=== PATIENT | male | born 1935 | race Caucasian/White ===

== ENCOUNTER 2016-05-21 13:18 | Emergency (ER) | payer OTHER ==
--- NOTE | 2016-05-21 14:21 | ED EKG INTERP ---
EKG Interpretation - EKG Time of EKG reading by physician:: 13:59 EKG Read and Signed by:: Aleida Aburto EKG Interpretation (*Must complete 3 of following elements*): Abnormal Rate: 72 Rhythm: NSR [place]: left QRS: normal MO Interval: normal ST Wave: normal Attestation - Scribe Verification/Attestation Scribe:: Reji Obrien Acting as Scribe for:: Aleida Aburto Scribe documention review:: This chart was documented by a scribe and accurately reflects the service the provider performed and the decisions made by the provider. Physician Attestation - Physician Attestation I, the provider, attest to the following statement:: Aleida Aburto Physician documentation Attestation:: This documentation recorded by the scribe accurately reflects the service I personally performed and the decisions made by me.
--- NOTE | 2016-05-21 16:02 | PROVIDER DOCUMENTATION ---
HPI-General Adult - General Chief Complaint: Weakness Stated Complaint: WEAKNESS Time Seen by Provider: 05/21/16 15:45 Source: family Allergies/Adverse Reactions: Patient Allergies Allergy/AdvReac Type Severity Reaction Status Date / Time No Known Allergies Allergy Verified 05/21/16 14:47 Home Medications: Home Medication List Medication Instructions Recorded Confirmed Last Taken Type Acetaminophen [Tylenol] 325 mg PO DAILY 05/21/16 05/21/16 05/21/16 08:00 History Murray 650 mg PO DAILY 05/21/16 05/21/16 05/21/16 08:00 History Ascorbic Acid [Vitamin C] 1,000 mg PO DAILY 05/21/16 05/21/16 05/21/16 08:00 History Cetirizine HCl [Zyrtec] 10 mg PO DAILY 05/21/16 05/21/16 05/21/16 08:00 History Finasteride 5 mg PO DAILY 05/21/16 05/21/16 05/21/16 08:00 History Garlic 100 mg PO DAILY 05/21/16 05/21/16 05/21/16 08:00 History Glimepiride 2 mg PO BID 05/21/16 05/21/16 05/21/16 08:00 History Hydralazine HCl 25 mg PO BID 05/21/16 05/21/16 05/21/16 08:00 History Mesalamine D.r. [Asacol Hd] 800 mg PO BID 05/21/16 05/21/16 05/21/16 08:00 History Multivitamin [Multivitamins] 1 cap PO DAILY 05/21/16 05/21/16 05/21/16 08:00 History Rivaroxaban [Xarelto] 20 mg PO DAILY 05/21/16 05/21/16 05/21/16 08:00 History Timolol Maleate 1 dose OP DAILY 05/21/16 05/21/16 05/21/16 08:00 History Vitamin B Complex 1 cap PO DAILY 05/21/16 05/21/16 05/21/16 08:00 History - History of Present Illness -Gen Adult Nature of Presenting Problems: Patient is a 80 yo M that presents to the ER via EMS for generalized weakness and frail. patient's wants him admitted for rehab. He has decreased ability to walk. She reports he was recently admitted and released from [facility] a few weeks ago. He has pcp in [place] and usually goes to [facility]. denies chest pain, palpitations, n/v/d, or fever/ chills. Location of Pain/Injury: reports: generalized Pain Radiation: reports: no radiation Quality of Pain: reports: none Severity: reports: moderate Onset/Duration: reports: unsure Timing: reports: still present, constant Context/Activities at Onset: reports: none Modifying Factors: improves with: nothing Associated Symptoms: reports: fatigue, malaise, weakness, trouble walking. denies: back/neck pain, chest pain, constipation, cough, diarrhea, dizziness, fever/chills, genitourinary problems, nausea, shortness of breath, swelling/ mass in abdomen Similar Symptoms Previously?: Yes Recently seen or treated by another doctor?: No Review of Systems - Adult - REVIEW OF SYSTEMS - ADULT ROS:: ROS per family Constitutional: reports: fatique. denies: chills, fever Eyes: reports: no symptoms reported Ears, Nose, Mouth & Throat: denies: ear pain, sinus problem, throat pain, throat swelling Cardiovascular: denies: chest pain, palpitations, syncope Respiratory: denies: cough, dyspnea on exertion, shortness of breath, wheezing Gastrointestinal: denies: abdominal pain, diarrhea, nausea, vomiting Genitourinary: reports: no symptoms reported Musculoskeletal: reports: muscle weakness. denies: muscle aches Integumentary: reports: no symptoms reported Neurological: denies: dizziness/vertigo, headache/migraines, numbness, paresthesia, seizure, syncope Psychiatric: reports: no symptoms reported Endocrine: reports: no symptoms reported Hematologic/Lymphatic: reports: no symptoms reported Allergic/Immunologic: reports: no symptoms reported All Other Systems: Reviewed and Negative Past History - Adult - PAST MEDICAL HISTORY-ADULT Review of Records: reports: Old Records Reviewed, Nursing Assessment Review, Medications Reviewed Cardiovascular: reports: HTN Endocrine/Immune: reports: Diabetes - PRIOR SURGERIES/PROCEDURES Surgical/Procedure History: reports: tonsillectomy - IMMUNIZATION STATUS Childhood Immunizations: See Nurse Assessment Flu Vaccine: See Nurse Assessment - FAMILY HISTORY Family History: reviewed, not pertinent - SOCIAL HISTORY Smoking: non-smoker Living Situation: family Physical Exam-General - PHYSICAL EXAM-ADULT Initial Vital Signs Reviewed: Yes - CONSTITUTIONAL General Appearance: alert, no apparent distress, other (frail appearing) - EYES Eyes: PERRL/EOMI, pink conjunctivae - HEAD, EARS, NOSE, MOUTH & THROAT HENMT: normocephalic/atraumatic, moist mucous membranes, normal ENT inspection - NECK Neck: full range of motion, normal inspection - RESPIRATORY Respiratory: lungs clear, normal breath sounds, no respiratory distress, no accessory muscle use - CARDIOVASCULAR Cardiovascular: regular rate, rhythm, no edema, no murmur - GASTROINTESTINAL (ABDOMEN) Abdominal Exam: normal bowel sounds, non tender, soft - MUSCULOSKELETAL Extremity: no calf tenderness, normal capillary refill, pelvis stable - SKIN Integumentary: normal color, warm/dry - NEUROLOGIC Neurologic: motor weakness (generalized bilateral lower extremity) - PSYCHIATRIC Psych/Mental Status: normal mood/affect, oriented x 3 Progress - PLAN OF CARE/RESULTS Progress/Plan/Lab Results: plan of care-labs, social work/case manger involvement for help with placement Zen LARKINsr risk management consultant contacted [facility], pt will be d/c home tonight. They will contact [facility], patient will be given [employer]'s number for tonight in case needs someone to see him tonight. [facility] will await insurance approval tomorrow but they have a male bed. Vital Signs Temp Pulse Resp BP Pulse Ox 05/21/16 13:26 97.7 F 78 15 140/75 98 No Known Allergies Allergy (Verified 05/21/16 14:47) Acetaminophen [Tylenol] 325 mg PO DAILY 05/21/16 Murray 650 mg PO DAILY 05/21/16 Ascorbic Acid [Vitamin C] 1,000 mg PO DAILY 05/21/16 Cetirizine HCl [Zyrtec] 10 mg PO DAILY 05/21/16 Finasteride 5 mg PO DAILY 05/21/16 Garlic 100 mg PO DAILY 05/21/16 Glimepiride 2 mg PO BID 05/21/16 Hydralazine HCl 25 mg PO BID 05/21/16 Mesalamine D.r. [Asacol Hd] 800 mg PO BID 05/21/16 Multivitamin [Multivitamins] 1 cap PO DAILY 05/21/16 Rivaroxaban [Xarelto] 20 mg PO DAILY 05/21/16 Timolol Maleate 1 dose OP DAILY 05/21/16 Vitamin B Complex 1 cap PO DAILY 05/21/16 Dietary Diet Diabetic Diet Start FriMay 21 142 Laboratory 05/21/16 05/21/16 05/21/16 16:48 16:37 16:37 WBC RBC Hgb Hct MCV MCH MCHC RDW Std Deviation Plt Count MPV Neut % (Auto) Lymph % (Auto) Hayes % (Auto) Eos % (Auto) Baso % (Auto) Neut # (Auto) Lymph # (Auto) Hayes # (Auto) Eos # (Auto) Baso # (Auto) Sodium 135 L Potassium 4.5 Chloride 97 L Carbon Dioxide 25 Anion Gap 13 BUN 21 Creatinine 0.7 Estimated GFR/1.73 m2 > 60 BUN/Creatinine Ratio 30 Glucose 176 H Calculated Osmolality 277 Calcium 8.7 L Total Bilirubin 0.19 L AST 17 ALT 26 Alkaline Phosphatase 87 Total Protein 6.7 Albumin 3.2 L Globulin 3.5 Albumin/Globulin Ratio 0.9 TSH 1.86 Urine Source CATH Urine Color YELLOW Urine Turbidity CLEAR Urine pH 6.0 Ur Specific [place] 1.018 Urine Protein 30 A Ur Glucose (Stick) NEGATIVE Ur Ketones (Stick) NEGATIVE Urine Blood TRACE A Urine Nitrite NEGATIVE Urine Bilirubin NEGATIVE Urobilinogen Dipstick NORMAL Urine Leukocytes TRACE A Urine WBC (Auto) 10-20 A Urine RBC (Auto) 10-20 A U Epithel Cells (Auto) <10 Urine Bacteria (Auto) NEGATIVE Urine Crystals NONE SEEN Small Round Cells NONE SEEN Urine Casts NONE SEEN Urine Yeast-like Cells PRESENT 05/21/16 16:37 WBC 14.37 H RBC 4.50 L Hgb 12.0 L Hct 37.9 L MCV 84.2 MCH 26.7 L MCHC 31.7 L RDW Std Deviation 14.2 Plt Count 578 H MPV 8.8 Neut % (Auto) 69.8 Lymph % (Auto) 16.9 L Hayes % (Auto) 12.4 H Eos % (Auto) 0.7 Baso % (Auto) 0.2 Neut # (Auto) 10.03 H Lymph # (Auto) 2.43 [place] # (Auto) 1.78 H Eos # (Auto) 0.10 Baso # (Auto) 0.03 Sodium Potassium Chloride Carbon Dioxide Anion Gap BUN Creatinine Estimated GFR/1.73 m2 BUN/Creatinine Ratio Glucose Calculated Osmolality Calcium Total Bilirubin AST ALT Alkaline Phosphatase Total Protein Albumin Globulin Albumin/Globulin Ratio TSH Urine Source Urine Color Urine Turbidity Urine pH Ur Specific [place] Urine Protein Ur Glucose (Stick) Ur Ketones (Stick) Urine Blood Urine Nitrite Urine Bilirubin Urobilinogen Dipstick Urine Leukocytes Urine WBC (Auto) Urine RBC (Auto) U Epithel Cells (Auto) Urine Bacteria (Auto) Urine Crystals Small Round Cells Urine Casts Urine Yeast-like Cells Orders Category Date Time Status Diabetic Diet Diet 05/21/16 14:26 Active CBC WITH ELECTRONIC DIFF [HEME] Stat Lab 05/21/16 16:37 Completed COMPREHENSIVE METABOLIC PANEL [CHEM] Stat Lab 05/21/16 16:37 Completed TSH Stat Lab 05/21/16 16:37 Completed UA NIMS W/REFLEX CULT [URINALYSIS] Stat Lab 05/21/16 16:48 Completed URINE CULTURE [RM] Routine Lab 05/21/16 17:13 Received URINE MANUAL MICROSCOPIC [URINALYSIS] Stat Lab 05/21/16 16:48 Completed pt will be d/c home, they will f/u with [facility] tomorrow for rehab placement , pt was clinically stable, was comfortable with plan of care Departure - Departure Time of Disposition Order: 17:46 DIAGNOSIS: Generalized weakness Fatigue Qualifiers: Fatigue type: other Qualified Code(s): R53.83 - Other fatigue Disposition: HOME 01 Certified Medical Emergency: Emergent Condition: Stable Additional Instructions: f/u with [facility] tomorrow as instructed by Soledad LARKIN ED Follow Up Instructions: You have been treated by a care provider in the Emergency Department. These instructions are being provided to you so you can have an understanding of how to care for yourself upon discharge. Upon discharge from the Emergency Department, you are responsible for making arrangements for follow-up care by a physician of your choice. Take all prescribed medications as directed. Return to the Emergency Department immediately for any new or worsening symptoms. You may call the Physician Referral phone number at [phone] to obtain a list of Physicians who are taking new patients. Attestation - Scribe Verification/Attestation Scribe:: Reji Obrien Acting as Scribe for:: Grant Angeles Scribe documention review:: This chart was documented by a scribe and accurately reflects the service the provider performed and the decisions made by the provider. Physician Attestation - Physician Attestation I, the provider, attest to the following statement:: Grant Angeles Physician documentation Attestation:: This documentation recorded by the scribe accurately reflects the service I personally performed and the decisions made by me.
[2016-05-21 16:52] LABS: BASO% 0.2 % (0.0-0.8); EOS% 0.7 % (0.0-10.0); HEMATOCRIT 37.9 % (42.0-52.0); LYMPH# 2.43 X1000 (1.2-3.4); LYMPH% 16.9 % (20.5-51.1); MANUAL DIFF NEEDED? NO; MCH 26.7 PG (27-31); MCHC 31.7 g/dL (33-37); MCV 84.2 FL (81-99); MONO# 1.78 X1000 (0.11-0.59); MONO% 12.4 % (1.7-9.3); MPV 8.8 FL (7.4-10.4); NEUT% 69.8 % (42.2-75.2); PLT 578 X1000 (130-400)
[2016-05-21 16:58] LABS: URINE SOURCE CATH
[2016-05-21 17:08] LABS: BILIRUBIN URINE NEGATIVE (NEGATIVE); BLOOD URINE TRACE (NEGATIVE); COLOR YELLOW; GLUCOSE URINE NEGATIVE (NEGATIVE); LEUKOCYTES URINE TRACE (NEGATIVE); NITRITE URINE NEGATIVE (NEGATIVE); PROTEIN URINE 30 mg/dL (NEGATIVE); SP GRAVITY URINE 1.018; TURBIDITY URINE CLEAR (CLEAR); UROBILINOGEN URINE NORMAL (NORMAL)
[2016-05-21 17:09] LABS: URINE MICRO REVIEW NEEDED? YES
[2016-05-21 17:13] LABS: UR EPITHELIAL CELLS <10 /HPF (<10); URINE BACTERIA NEGATIVE /HPF; URINE CASTS NONE SEEN; URINE CRYSTALS NONE SEEN; URINE CULTURE NEEDED? YES; URINE SMALL ROUND CELLS NONE SEEN
[2016-05-21 17:20] LABS: AGAP 13; ALBUMIN 3.2 g/dL (3.5-5.0); ALKALINE PHOSPHATASE 87 U/L (32-122); BUN 21 mg/dL (8-22); CALCIUM 8.7 mg/dL (8.8-10.2); CHLORIDE 97 mmol/L (98-107); COSMO 277; GOT 17 U/L (10-34); GPT 26 U/L (10-44); POTASSIUM 4.5 mmol/L (3.5-5.1); SODIUM 135 mmol/L (136-145); TCO2 25 mmol/L (25-35); TOTAL BILIRUBIN 0.19 mg/dL (0.20-1.00); TOTAL PROTEIN 6.7 g/dL (6.3-8.3)
[2016-05-21 18:40] VITALS: BP 138/57
--- NOTE | 2016-05-22 07:23 | EKG Report ---
Test Performed on : 05/21/2016 1:59:24 PM Test Reason : Blood Pressure : / mmHG Vent. Rate : 072 BPM Atrial Rate : 072 BPM P-R Int : 148 ms QRS Dur : 084 ms QT Int : 384 ms P-R-T Axes : 007 -40 010 degrees QTc Int : 420 ms Normal sinus rhythm. Left axis deviation Abnormal ECG No previous ECGs available Unconfirmed Result
== END 2016-05-21 18:39 | disposition home or self-care (01) ==
LOC: EDUNIT# → EDBD → ED 13:18
DX: M62.81 Muscle weakness (generalized) (principal); R53.83 Other fatigue; R53.81 Other malaise; I10 Essential (primary) hypertension; E11.9 Type 2 diabetes mellitus without complications; R94.31 Abnormal electrocardiogram [ECG] [EKG]; Z79.899 Other long term (current) drug therapy; Z79.01 Long term (current) use of anticoagulants
CPT/HCPCS: 80053; 81001; 82948; 84443; 85025; 87088